=== PATIENT | male | born 1960 | race Caucasian/White ===

== ENCOUNTER 2018-11-16 08:03 | Day surgery (SDC) | payer OTHER ==
[2018-11-16] MEDS ORDERED: EPINEPHRINE (1:1000) 1 MG/ML AMPUL ONE (08:45)
[2018-11-16] MEDS ORDERED: LIDOCAINE HCL/PF 1% 30 ML SDV ONE (08:45)
[2018-11-16] MEDS ORDERED: methylPREDNISolone ACETATE 80 MG/ML VIAL ONE (08:45)
[2018-11-16] MEDS ORDERED: MIDAZOLAM HCL 2 MG/2ML VIAL ONE (08:47)
[2018-11-16] MEDS ORDERED: ROCURONIUM BROMIDE 50 MG/5 ML ONE (08:48)
[2018-11-16] MEDS ORDERED: CLINDAMYCIN 900 MG/6 ML VIAL ONE (08:50)
== END 2018-11-16 11:30 | disposition home or self-care (01) ==
LOC: DS 08:03
PROVIDERS: ATTEND Specialist
DX: M75.41 Impingement syndrome of right shoulder (principal); M19.011 Primary osteoarthritis, right shoulder; M65.811 Other synovitis and tenosynovitis, right shoulder; Z98.890 Other specified postprocedural states
CPT/HCPCS: 29824; 29826; 88304; 88311; A4217; A4565; J0171; J1040; J1100; J1885; J2250; J2405; J2704; J2710; J3490 ×4